=== PATIENT | male | born 1950 | race Caucasian/White ===

== ENCOUNTER 2022-09-04 11:20 | Day surgery (SDC) | payer OTHER, SELFPAY ==
--- NOTE | 2022-09-01 14:37 | HO.ANESPROP2 ---
Documented by User: Nneka Wilson NP 09/01/22 14:38 HPI - Anesthesia Eval Consult details Narrative: 72yo M for Upper Endoscopy and Colonoscopy [facility] Past Medical History Medical History Arrhythmia Ni's esophagus COPD (chronic obstructive pulmonary disease) Depression Diabetes Diverticulitis Emphysema/COPD GERD (gastroesophageal reflux disease) HTN (hypertension) Hyperlipidemia Migraines Spondylarthrosis Surgical History Surgical History H/O nasal polypectomy H/O partial resection of colon H/O repair of rotator cuff History of lung biopsy History of tonsillectomy S/P correction of deviated nasal septum Social History Social History Patient Tobacco Use Status: Current everyday Tobacco user Tobacco use type: Cigarette Cigarettes Per Day: 5 Use of substances other than those prescribed or required for medical reasons: No Are you DNR?: No Advance Directives: No Advance Directives Information Provided: Yes Recently lost weight without trying: No Nutrition Risks: No Nutritional Risk Meds Allergies Allergy/AdvReac Type Severity Reaction Status Date / Time No Known Allergies Allergy Unverified 12/04/19 14:35 Home Medications Medication Instructions Recorded Confirmed Last Taken Type albuterol sulfate 90 mcg/actuation 1 inh inhalation Q4H PRN Wheezing 09/01/22 09/01/22 Unknown History breath activated powder inhaler atorvastatin 40 mg tablet 40 mg PO DAILY 09/01/22 09/01/22 Unknown History dulaglutide 1.5 mg/0.5 mL 1.5 mg subcut QWEEK 09/01/22 09/01/22 Unknown History subcutaneous pen injector duloxetine 20 mg capsule,delayed 20 mg PO DAILY 09/01/22 09/01/22 Unknown History release sprinkle empagliflozin 25 mg tablet 25 mg PO DAILY 09/01/22 09/01/22 Unknown History (Jardiance) erenumab-aooe 70 mg/mL 70 mg subcut QMONTH 09/01/22 09/01/22 Unknown History subcutaneous auto-injector finasteride 5 mg tablet 5 mg PO DAILY 09/01/22 09/01/22 Unknown History lisinopril 2.5 mg tablet 2.5 mg PO DAILY 09/01/22 09/01/22 Unknown History melatonin 1 mg tablet 1 mg PO BEDTIME PRN Insomnia 09/01/22 09/01/22 Unknown History metformin 500 mg tablet 1,000 mg PO QPM 09/01/22 09/01/22 Unknown History metformin 500 mg tablet 500 mg PO QAM 09/01/22 09/01/22 Unknown History mirtazapine 7.5 mg tablet 7.5 mg PO BEDTIME 09/01/22 09/01/22 Unknown History olodaterol 2.5 mcg/actuation mist 2 inh inhalation DAILY 09/01/22 09/01/22 Unknown History for inhalation omeprazole 40 mg capsule,delayed 40 mg PO DAILY 09/01/22 09/01/22 Unknown History release pregabalin 50 mg capsule 50 mg PO BID 09/01/22 09/01/22 Unknown History tamsulosin 0.4 mg capsule 0.4 mg PO DAILY 09/01/22 09/01/22 Unknown History Exam Exam Date and Time: September 01, 2022 473 Assessment and Plan Assessment Anesthesia Assessment: Chart Reviewed Documented by User: Ana Rosa Bailon MD 09/04/22 14:23 [facility] Active Problems Active Problems: Abnormal EKG-rhythm undetermined. Reviewed with door person- 2nd degree Mobitz Type 1 block. Patient asymptomatic Past Medical History Medical History Arrhythmia Ni's esophagus COPD (chronic obstructive pulmonary disease) Depression Diabetes Diverticulitis Emphysema/COPD GERD (gastroesophageal reflux disease) HTN (hypertension) Hyperlipidemia Migraines Spondylarthrosis Family History Family history of problems with anesthesia: No Surgical History Surgical History H/O nasal polypectomy H/O partial resection of colon H/O repair of rotator cuff History of lung biopsy History of tonsillectomy S/P correction of deviated nasal septum History of Problems with Anesthesia: No Social History Social History Patient Tobacco Use Status: Current everyday Tobacco user Tobacco use type: Cigarette Cigarettes Per Day: 5 Use of substances other than those prescribed or required for medical reasons: No Are you DNR?: No Advance Directives: No Advance Directives Information Provided: Yes Recently lost weight without trying: No Nutrition Risks: No Nutritional Risk Meds Allergies Allergy/AdvReac Type Severity Reaction Status Date / Time No Known Allergies Allergy Unverified 12/04/19 14:35 Home Medications Medication Instructions Recorded Confirmed Last Taken Type albuterol sulfate 90 mcg/actuation 1 inh inhalation Q4H PRN Wheezing 09/01/22 09/01/22 Unknown History breath activated powder inhaler atorvastatin 40 mg tablet 40 mg PO DAILY 09/01/22 09/01/22 Unknown History dulaglutide 1.5 mg/0.5 mL 1.5 mg subcut QWEEK 09/01/22 09/01/22 Unknown History subcutaneous pen injector duloxetine 20 mg capsule,delayed 20 mg PO DAILY 09/01/22 09/01/22 Unknown History release sprinkle empagliflozin 25 mg tablet 25 mg PO DAILY 09/01/22 09/01/22 Unknown History (Jardiance) erenumab-aooe 70 mg/mL 70 mg subcut QMONTH 09/01/22 09/01/22 Unknown History subcutaneous auto-injector finasteride 5 mg tablet 5 mg PO DAILY 09/01/22 09/01/22 Unknown History lisinopril 2.5 mg tablet 2.5 mg PO DAILY 09/01/22 09/01/22 Unknown History melatonin 1 mg tablet 1 mg PO BEDTIME PRN Insomnia 09/01/22 09/01/22 Unknown History metformin 500 mg tablet 1,000 mg PO QPM 09/01/22 09/01/22 Unknown History metformin 500 mg tablet 500 mg PO QAM 09/01/22 09/01/22 Unknown History mirtazapine 7.5 mg tablet 7.5 mg PO BEDTIME 09/01/22 09/01/22 Unknown History olodaterol 2.5 mcg/actuation mist 2 inh inhalation DAILY 09/01/22 09/01/22 Unknown History for inhalation omeprazole 40 mg capsule,delayed 40 mg PO DAILY 09/01/22 09/01/22 Unknown History release pregabalin 50 mg capsule 50 mg PO BID 09/01/22 09/01/22 Unknown History tamsulosin 0.4 mg capsule 0.4 mg PO DAILY 09/01/22 09/01/22 Unknown History Exam Height,Weight and Vital Signs: Height 5 ft 11 in Weight 79.379 kg Vital Signs Temp Pulse Resp BP Pulse Ox O2 Del Method 09/04/22 12:31 97.8 F 75 16 153/69 H 98 Room Air Pertinent Lab Results Pertinent Lab Results: Lab Results 09/04/22 Range/Units 12:41 POC Glucose 108 (60-115) mg/dL Airway Mallampati Class: II TM Dist: >3cm Neck ROM: Full Loose/Missing/Broken Teeth: Yes (Dentures out. Few teeth bottom- none loose or broken) Heart: Irregular Lungs: CTAB Assessment and Plan Assessment Anesthesia Assessment: Anesthesia Plan Discussed Final Anesthetic Review Family History of Problems with Anesthesia: No History of Problems with Anesthesia: No NPO: Yes ASA Class: II Final Preanesthetic Review: No Changes in Pt Med Stat, Meds/Allgs Chart Reviewed, Consent Obtained/Reviewed and Anes Risks/Benef Reviewed Patient Risk: Intermediate Procedure Risk: Low Assessment/Block/Sedation in SS: Assess/Block/Sedation-SS Anesthetic Plan Anesthetic Plan: MAC: Disposition: Standard PACU
--- NOTE | 2022-09-04 | ECG_ITS ---
Test Reason : Ho. Irregular heart beet Blood Pressure : / mmHG Vent. Rate : 069 BPM Atrial Rate : 081 BPM P-R Int : 000 ms QRS Dur : 104 ms QT Int : 400 ms P-R-T Axes : 051 -09 025 degrees QTc Int : 428 ms Normal sinus rhythm Mobitz 1 wenckeback second degree HB Abnormal ECG When compared with ECG of 03-FEB-2006 09:14, changes noted Discussed with . Referred By: Michelle Crockett Electronically Signed By:DEE HENNESSY
[2022-09-04 12:22] VITALS: BMI 24.4
[2022-09-04 12:31] VITALS: BP 153/69; PULSE 75; RESP 16; TEMP 36.6; O2SAT 98
[2022-09-04 12:45] LABS: Glucose, Whole Blood 108 mg/dL (60-115)
[2022-09-04] MEDS: Lactated Ringers 1,000 ML 100 ML IVCONT (12:48)
--- NOTE | 2022-09-04 13:45 | PC.NURSE ---
PATIENT HAS AN IRREGULAR BEAT BUT UNKNOWN OF WHAT IT WAS. EKG PERFORMED PRE-OPERATIVELY FOR A BASELINE. UNKNOWN/UNDETERMINED RHYTHM ON EKG. MD HENNESSY NOTIFIED EKG/RHYTHMS TIGER CONNECTED TO CARDIOLOGY. DETERMINED MOBITZ TYPE ONE SECOND DEGREE BLOCK. PATIENT AWARE OF PLAN OF CARE. PATIENT STATES HE HAD SEEN A CARDIOLOGISTS IN THE PAST AND WAS TOLD NO NEED FOR A PACEMAKER OR TO BE ON ANY BLOOD THINNERS.
--- NOTE | 2022-09-04 14:44 | P.CONAN_ITS ---
[facility] Past Medical History Medical History Arrhythmia Ni's esophagus COPD (chronic obstructive pulmonary disease) Depression Diabetes Diverticulitis Emphysema/COPD GERD (gastroesophageal reflux disease) HTN (hypertension) Hyperlipidemia Migraines Spondylarthrosis Family History Family history of problems with anesthesia: No Surgical History Surgical History H/O nasal polypectomy H/O partial resection of colon H/O repair of rotator cuff History of lung biopsy History of tonsillectomy S/P correction of deviated nasal septum History of Problems with Anesthesia: No Social History Social History Patient Tobacco Use Status: Current everyday Tobacco user Tobacco use type: Cigarette Cigarettes Per Day: 5 Use of substances other than those prescribed or required for medical reasons: No Are you DNR?: No Advance Directives: No Advance Directives Information Provided: Yes Recently lost weight without trying: No Nutrition Risks: No Nutritional Risk Meds Allergies Allergy/AdvReac Type Severity Reaction Status Date / Time No Known Allergies Allergy Unverified 12/04/19 14:35 Active Medications: Current Medications Albuterol Sulfate (Albuterol Sulfate (0.083%) 2.5 Mg/3 Ml Vial.Neb) 2.5 mg INHALE ONCE PRN PRN Reason: Shortness of Breath/Wheezing Lactated Ringer's (Lr) 1,000 mls @ 100 mls/hr IVCONT .Q10H KATIE Last Admin: 09/04/22 12:48 Dose: 100 mls/hr Ondansetron HCl (Ondansetron Hcl 4 Mg/2 Ml Vial) 4 mg IVPUSH ONCE PRN PRN Reason: Nausea and Vomiting Sodium Biphosphate/Sodium Phosphate (Sodium Phosphate,Porter-Dibasic 133 Ml Enema) 133 ml TN ONCE PRN PRN Reason: Poor Colonoscopy Prep Results Home Medications Medication Instructions Recorded Confirmed Last Taken Type albuterol sulfate 90 mcg/actuation 1 inh inhalation Q4H PRN Wheezing 09/01/22 09/01/22 Unknown History breath activated powder inhaler atorvastatin 40 mg tablet 40 mg PO DAILY 09/01/22 09/01/22 Unknown History dulaglutide 1.5 mg/0.5 mL 1.5 mg subcut QWEEK 09/01/22 09/01/22 Unknown History subcutaneous pen injector duloxetine 20 mg capsule,delayed 20 mg PO DAILY 09/01/22 09/01/22 Unknown History release sprinkle empagliflozin 25 mg tablet 25 mg PO DAILY 09/01/22 09/01/22 Unknown History (Jardiance) erenumab-aooe 70 mg/mL 70 mg subcut QMONTH 09/01/22 09/01/22 Unknown History subcutaneous auto-injector finasteride 5 mg tablet 5 mg PO DAILY 09/01/22 09/01/22 Unknown History lisinopril 2.5 mg tablet 2.5 mg PO DAILY 09/01/22 09/01/22 Unknown History melatonin 1 mg tablet 1 mg PO BEDTIME PRN Insomnia 09/01/22 09/01/22 Unknown History metformin 500 mg tablet 1,000 mg PO QPM 09/01/22 09/01/22 Unknown History metformin 500 mg tablet 500 mg PO QAM 09/01/22 09/01/22 Unknown History mirtazapine 7.5 mg tablet 7.5 mg PO BEDTIME 09/01/22 09/01/22 Unknown History olodaterol 2.5 mcg/actuation mist 2 inh inhalation DAILY 09/01/22 09/01/22 Unknown History for inhalation omeprazole 40 mg capsule,delayed 40 mg PO DAILY 09/01/22 09/01/22 Unknown History release pregabalin 50 mg capsule 50 mg PO BID 09/01/22 09/01/22 Unknown History tamsulosin 0.4 mg capsule 0.4 mg PO DAILY 09/01/22 09/01/22 Unknown History Exam Exam Date and Time: September 04, 2022 1444 Height,Weight and Vital Signs: Height 5 ft 11 in Weight 79.379 kg Last Vital Signs Temp 97.8 F 09/04/22 12:31 Pulse 75 09/04/22 12:31 Resp 16 09/04/22 12:31 BP 153/69 H 09/04/22 12:31 Pulse Ox 98 09/04/22 12:31 O2 Del Method Room Air 09/04/22 12:31 Pertinent Lab Results Pertinent Lab Results: Laboratory Tests 09/04/22 12:41 POC Glucose 108 Airway Mallampati Class: I TM Dist: >3cm Neck ROM: Full Denture: Upper and Lower Loose/Missing/Broken Teeth: No Heart: iregular reviewed with furnace brazer Lungs: cta Assessment and Plan Assessment Anesthesia Assessment: Anesthesia Plan Discussed and Chart Reviewed Final Anesthetic Review Family History of Problems with Anesthesia: No History of Problems with Anesthesia: No Final Preanesthetic Review: No Changes in Pt Med Stat, Meds/Allgs Chart Reviewed, Consent Obtained/Reviewed and Anes Risks/Benef Reviewed Patient Risk: Low Procedure Risk: Low Anesthetic Plan Anesthetic Plan: MAC: Disposition: Standard PACU
[2022-09-04 15:49] VITALS: BP 93/57; PULSE 67; RESP 16; TEMP 36.1; O2SAT 94
--- NOTE | 2022-09-04 15:54 | P.BOP_ITS ---
Brief Operative Note Date of Service: 09/04/22 Pre-op diagnosis: Ni's, Screening Post-op diagnosis: other (Same, Hiatal hernia, Gastritis, Duodenitis, Diverticulosis) Procedure: EGD with biopsies, Colonoscopy to the cecum Surgeon: Gregg Chiu Anesthesia: MAC Was an Public Administration Teacher used for this Procedure?: No Estimated blood loss (mL): 2.0 Pathology: other (A. Gastric antrum B. EG Junction at 38cm) Condition: stable Disposition: PACU
[2022-09-04 16:04] VITALS: BP 114/62; PULSE 71; RESP 16; TEMP 36.9; O2SAT 96
--- NOTE | 2022-09-05 02:53 | OP_ITS ---
DATE OF SERVICE: 09/04/2022 SURGEON: Gregg Chiu MD INDICATIONS: The patient presents for evaluation of gastroesophageal reflux, history of Ni's esophagus, personal history of tubular adenoma of the colon, and colorectal cancer screening. Full consent has been obtained from him for both procedures, including risks of bleeding and perforation. PREOPERATIVE DIAGNOSIS: POSTOPERATIVE DIAGNOSIS: PROCEDURE PERFORMED: ESTIMATED BLOOD LOSS: COMPLICATIONS: ANESTHESIA: Monitored anesthesia care. ASSISTANTS: SPECIMENS: PREOPERATIVE DIAGNOSES: Gastroesophageal reflux, Ni's esophagus, personal history of tubular adenoma of the colon and colorectal cancer screening. POSTOPERATIVE DIAGNOSES: Gastroesophageal reflux, Ni's esophagus, personal history of tubular adenoma of the colon and colorectal cancer screening, hiatal hernia, gastritis, diverticulosis, and internal hemorrhoids. PROCEDURES PERFORMED: Esophagogastroduodenoscopy with biopsies, and colonoscopy to the cecum. DESCRIPTION OF PROCEDURE: The patient was placed in the left lateral decubitus position. The Olympus video gastroscope was passed in the posterior oropharynx and upper esophagus under direct vision. The scope was passed slowly into the distal esophagus. The gastroesophageal junction appeared at 38 cm. This area was slightly irregular consistent with chronic reflux and possible small, less than 1 cm areas of Ni's mucosa. There was no esophagitis nor any lesions. The scope entered the stomach. There was a small hiatal hernia. The scope was advanced to the pylorus and the duodenum was cannulated to the descending portion. The second and third portions of the duodenum appeared normal. The duodenal bulb had areas of some duodenitis as well as some deformity and what appeared to be some outpouching or diverticulum of the duodenal bulb. There was no ulcer disease. The scope was withdrawn back to the stomach. The gastric antrum had changes consistent with gastritis with some erythema and edema, as well as some friability. There were no erosions or ulceration. There was good peristalsis. Biopsies were obtained from the antrum. The scope was retroflexed visualizing the proximal stomach carefully, which appeared normal, without any sign of mass or ulceration. The scope was straightened and withdrawn back to the esophagus. Biopsies were obtained at the EG junction at 38 cm. Proximal to this, the esophageal mucosa appeared normal. The scope was withdrawn from the patient. He was turned around for the colonoscopy. The digital rectal exam revealed no abnormalities. The Olympus video pediatric colonoscope was entered into the rectum and advanced easily to the cecum. Once in the cecum, I did identify normal-appearing cecal pouch. However, this did require a lot of irrigation and suctioning to be able to get a good look at the cecal pouch. Once that was accomplished, the cecum was well visualized and appeared normal. The ileocecal valve appeared normal. There was transillumination of light deep in the right lower quadrant. The scope was then slowly withdrawn assessing all mucosal surfaces carefully. Preparation was good throughout the colon, although again did require a fair amount of irrigation and suctioning. I did not visualize any sign of polyps, colitis, nor angiodysplasia. There was scattered diverticula in the descending colon. I did not visualize any definitive anastomosis. In the rectum, scope was retroflexed visualizing internal hemorrhoids, but no other pathology. The rectal mucosa appeared normal. The scope was straightened and withdrawn from the patient. He tolerated the procedure well and was returned to the recovery area in stable condition. IMPRESSION: 1. Hiatal hernia, gastroesophageal reflux. 2. Gastritis. 3. Duodenitis. 4. Diverticulosis. 5. Internal hemorrhoids. PLAN: The results of the pathology will be checked. Given today's negative colonoscopy and a colonoscopy 5 years ago where just a minimal tubular adenoma was removed, I do not think he would need any further screening colonoscopies, given his age and some underlying medical problems. I did advise him to continue his daily omeprazole for his chronic reflux. Even if Ni's esophagus is seen on today's biopsies, I do not think I would recommend repeat upper endoscopy either, given his overall condition and age. He was advised that he could resume his aspirin again in 1 week, but I did advise him to speak with his primary care physician as to whether or not he actually needs that given some inflammatory changes seen on today's exam and from what I can tell he does not have any definitive history of IN or stroke. If things are otherwise well, he will see me on a p.r.n. basis. This has been discussed with his . MD SHANE Kwon/BOOGIE / [id number] MIKE
== END 2022-09-04 16:17 | disposition home or self-care (01) ==
PROVIDERS: Visit Provider Internal Medicine
PROC: (CPT 45378; principal; 2022-09-04 12:40)
DX: Z12.11 Encounter for screening for malignant neoplasm of colon (principal); Z86.010 Personal history of colon polyps; K57.30 Diverticulosis of large intestine without perforation or abscess without bleeding; K64.8 Other hemorrhoids; K21.9 Gastro-esophageal reflux disease without esophagitis; K22.70 Barrett's esophagus without dysplasia; K29.50 Unspecified chronic gastritis without bleeding; K29.80 Duodenitis without bleeding; K44.9 Diaphragmatic hernia without obstruction or gangrene; J44.9 Chronic obstructive pulmonary disease, unspecified; I10 Essential (primary) hypertension; E78.5 Hyperlipidemia, unspecified; E11.9 Type 2 diabetes mellitus without complications; Z79.85 Long-term (current) use of injectable non-insulin antidiabetic drugs; Z79.84 Long term (current) use of oral hypoglycemic drugs; Z79.899 Other long term (current) drug therapy; Z90.49 Acquired absence of other specified parts of digestive tract; Z87.19 Personal history of other diseases of the digestive system; F17.210 Nicotine dependence, cigarettes, uncomplicated
CPT/HCPCS: 45378; 43239; 82947; 88305; 88342; 93005